=== PATIENT | male | born 1990 | race African-American/Black ===

== ENCOUNTER 2019-02-09 11:31 | Emergency (ER) | payer OTHER ==
[~2019-02-09] VITALS: Ht 170.2 cm; Wt 108.9 kg
[2019-02-09] MEDS ORDERED: IBUPROFEN 800800 M1 PO (12:22)
[2019-02-09 12:54] VITALS: BP 141/89
== END 2019-02-09 12:30 | disposition home or self-care (01) ==
LOC: ER 11:31
DX: S46.912A Strain of unspecified muscle, fascia and tendon at shoulder and upper arm level, left arm, initial encounter (principal); X50.1XXA Overexertion from prolonged static or awkward postures, initial encounter; Y93.72 Activity, wrestling; Y92.89 Other specified places as the place of occurrence of the external cause; Y99.9 Unspecified external cause status